=== PATIENT | female | born 1980 | race Caucasian/White ===

== ENCOUNTER → 2020-04-18 10:21 | Outpatient (BNVA) | payer BC, SELFPAY | PROVIDERS: PCP Internal Medicine; Visit Provider Physician Assistant ==

== ENCOUNTER 2020-04-19 08:39 | Outpatient (REF) | payer BC, SELFPAY ==
[2020-04-19 09:31] LABS: MANUAL DIFF FLAG NO
[2020-04-19 09:33] LABS: Basophils Percent Auto 0.6 % (0-2); Eosinophils Absolute Auto 0.1 X10*3/uL (0.0-0.4); Eosinophils Percent Auto 1.8 % (0-4); Hematocrit 38.4 % (37-47); Hemoglobin 12.3 g/dl (12.0-16.0); Imm Gran Abs Auto 0.01 X10*3/uL (0.00-0.03); Imm Gran Pct Auto 0.2 % (0.0-0.4); Lymphocytes Absolute Auto 1.9 X10*3/uL (1.2-4.9); Lymphocytes Percent Auto 30.7 % (20-40); Mean Corpuscular Hemoglobin 24.6 pg (27.0-33.0); Mean Corpuscular Volume 76.8 fL (80-98); Mean Platelet Volume 8.4 fL (9.4-12.3); Monocytes Absolute Auto 0.4 X10*3/uL (0.1-1.2); Monocytes Percent Auto 6.5 % (2-11); Neutrophils Absolute Auto 3.7 X10*3/uL (2.0-8.3); Neutrophils Percent Auto 60.2 % (45-73); Platelet Count 421 X10*3/uL (160-400); Red Cell Distribution Width 14.5 % (11.0-16.0); White Blood Count 6.2 X10*3/uL (4.8-10.8)
[2020-04-19 10:03] LABS: Estimated Average Glucose 97 mg/dL
[2020-04-19 10:04] LABS: Alanine Aminotransferase 12 U/L (0-31); Albumin Level 4.1 g/dL (3.5-5.0); Alkaline Phosphatase 63 U/L (39-117); Anion Gap 11 (12-20); Aspartate Amino Transferase 17 U/L (5-31); Bilirubin Total 0.5 mg/dL (0.0-1.0); Blood Urea Nitrogen 9 mg/dL (9-16); C Reactive Protein 0.23 mg/dL (< or = 0.50); Calcium 9.2 mg/dL (8.4-10.2); Carbon Dioxide 27 mmol/L (22-29); Chloride 103 mmol/L (96-108); Cholesterol 216 mg/dL; Estimated Glomerular Filt Rate > 60; Glucose Fasting 93 mg/dL (60-99); HDL Cholesterol 54 mg/dL; Iron 42 mcg/dL (30-160); LDL Cholesterol Calculated 149 mg/dl; Percent Iron Saturation 10 % (15-50); Potassium 4.3 mmol/L (3.3-5.1); Sodium 137 mmol/L (135-145); Total Iron Binding Capacity 426 mcg/dL (228-428); Triglycerides 68 mg/dL; Unsaturated Iron Binding 384 ug/dL
[2020-04-19 10:26] LABS: Ferritin 5 ng/mL (10-122); TSH reflex Free T4 1.28 uIU/mL (0.32-4.0); Vitamin D 25-OH Total 21.6 ng/mL (>30)
[2020-04-20 18:11] LABS: Insulin Level Total 6.8 uIU/mL
[2020-04-20 20:52] LABS: Folate 19.5 ng/mL (> or = 4.0); Vitamin B12 341 pg/mL (200-900)
[2020-04-21 12:07] LABS: Calcium (PTHI) 9.5 mg/dL (8.6-10.2); PTHI 33 pg/mL (14-64)
[2020-04-21 23:56] LABS: Zinc 70 mcg/dL (60-130)
[2020-04-23 13:17] LABS: Vitamin B1 8 nmol/L (8-30)
[2020-04-25 02:11] LABS: Vitamin A 35 mcg/dL (38-98)
== END 2020-04-19 08:40 | disposition home or self-care (01) ==
LOC: HO.LAB 08:39
PROVIDERS: Visit Provider Physician Assistant
DX: E66.01 Morbid (severe) obesity due to excess calories (principal); Z68.36 Body mass index [BMI] 36.0-36.9, adult
CPT/HCPCS: 36415; 80053; 80061; 82306; 82607; 82728; 82746; 83036; 83525; 83540; 83970; 84425; 84443; 84590; 84630; 85025; 86140

== ENCOUNTER → 2020-05-08 08:51 | Outpatient (BNVA) | payer BC, SELFPAY | PROVIDERS: PCP Internal Medicine; Visit Provider Dietitian, Registered ==

== ENCOUNTER → 2020-05-10 12:33 | Outpatient (REF) | payer BC, SELFPAY | LOC: HO.SL 12:33 | PROVIDERS: Visit Provider Physician Assistant | DX: G47.19 Other hypersomnia (principal) | CPT/HCPCS: 95806 ==

== ENCOUNTER → 2020-06-15 09:44 | Outpatient (BNVA) | payer BC, SELFPAY | PROVIDERS: PCP Internal Medicine; Visit Provider Physician Assistant ==

== ENCOUNTER → 2020-07-13 08:09 | Outpatient (BNVA) | payer BC, SELFPAY | PROVIDERS: PCP Internal Medicine; Visit Provider Dietitian, Registered | DX: E66.9 Obesity, unspecified (principal); Z68.32 Body mass index [BMI] 32.0-32.9, adult | CPT/HCPCS: 97803 ==

== ENCOUNTER → 2020-08-11 08:07 | Outpatient (BNVA) | payer BC, SELFPAY | PROVIDERS: PCP Internal Medicine; Visit Provider Physician Assistant ==

== ENCOUNTER → 2020-09-13 08:37 | Outpatient (BNVA) | payer BC, SELFPAY | PROVIDERS: PCP Internal Medicine; Visit Provider Dietitian, Registered | DX: E66.3 Overweight (principal); E53.8 Deficiency of other specified B group vitamins; Z68.29 Body mass index [BMI] 29.0-29.9, adult | CPT/HCPCS: 97803 ==